=== PATIENT | female | born 1980 | race Two or more races ===

== ENCOUNTER 2018-01-30 19:16 | Emergency (ER) | payer MEDICAID ==
[2018-01-30] MEDS ORDERED: PREDNISONE 20 MG TABLET PO ONE (20:29)
--- NOTE | 2018-01-30 20:32 | ER Document Report ---
ED Respiratory Problem - General Chief Complaint: Productive Cough Stated Complaint: COUGH Time Seen by Provider: 01/30/18 20:18 Mode of Arrival: Ambulatory Information source: Patient Notes: 37-year-old female presented to ED for complaint of cough cold congestion and nonstop cough for the last week. She states she has a history of bronchitis and pneumonia but no asthma. She does have significant eczema to face both arms both legs. She has scratched several areas raw due to the itching. She states when she was in her early 20s she was told her she did not stop smoking she would be on oxygen but it for she was 32 so she stopped smoking at that time. She states that she and her family just moved from [place] and have not seen there new primary doctor yet but she does have her Medicaid card. Patient is alert and oriented respirations regular and unlabored when not coughing speaking in full sentences and walks with a even steady gait. TRAVEL OUTSIDE OF THE [place] IN LAST 30 DAYS: No - HPI Patient complains to provider of: Cough, Other - uri, eczema Onset: Last week Duration: Continuous Initiating Event: URI Quality of pain: Achy Severity: Moderate Pain Level: 3 Short of Breath: Mild Cough: Productive Sputum amount: Moderate Sputum color: Creamy Sputum consistency: Thick Associated symptoms: Congestion, Cough, PND, Runny nose, Sinus pain/pressure, Short of breath, Sore Throat. denies: Fever Similar symptoms previously: Yes Recently seen / treated by doctor: No - Related Data Allergies/Adverse Reactions: morphine Allergy (Verified 01/30/18 19:21) Past Medical History - General Information source: Patient - Social History Smoking Status: Former Smoker Cigarette use (# per day): No Chew tobacco use (# tins/day): No Smoking Education Provided: No Frequency of alcohol use: None Drug Abuse: None Lives with: Family Family History: Reviewed & Not Pertinent Patient has suicidal ideation: No Patient has homicidal ideation: No - Past Medical History Cardiac Medical History: Reports: None Pulmonary Medical History: Reports: Hx Bronchitis, Hx Pneumonia EENT Medical History: Reports: None Neurological Medical History: Reports: None Endocrine Medical History: Reports: None Renal/ Medical History: Reports: None Malignancy Medical History: Reports: None GI Medical History: Reports: None Musculoskeletal Medical History: Reports Hx Musculoskeletal Trauma Skin Medical History: Reports Hx Eczema Psychiatric Medical History: Reports: None Traumatic Medical History: Reports: Hx Fractures - Fractured wrist and ankle Infectious Medical History: Reports: None Past Surgical History: Reports: Hx Cholecystectomy - Immunizations Immunizations up to date: Yes Review of Systems - Review of Systems Constitutional: Recent illness EENT: Nose congestion, Nose discharge, Sinus pressure, Sinus discharge, Throat pain Cardiovascular: No symptoms reported Respiratory: Cough, Short of breath Gastrointestinal: No symptoms reported Genitourinary: No symptoms reported Female Genitourinary: No symptoms reported Musculoskeletal: No symptoms reported Skin: Other - Severe eczema to face neck arms Hematologic/Lymphatic: No symptoms reported Neurological/Psychological: No symptoms reported -: Yes All other systems reviewed and negative Physical Exam - Vital signs Vitals: Temp Pulse Resp BP Pulse Ox 98.5 F 77 18 147/79 H 96 01/30/18 19:31 01/30/18 19:31 01/30/18 19:31 01/30/18 19:31 01/30/18 19:31 Interpretation: Normal - General General appearance: Appears well, Alert - HEENT Head: Normocephalic, Atraumatic Eyes: Normal Pupils: PERRL Ears: Normal External canal: Normal Tympanic membrane: Normal Sinus: Normal Nasal: Purulent discharge, Swelling Mouth/Lips: Normal Mucous membranes: Normal Pharynx: Post nasal drainage Neck: Normal - Respiratory Respiratory status: No respiratory distress Chest status: Nontender Breath sounds: Normal Chest palpation: Normal - Cardiovascular Rhythm: Regular Heart sounds: Normal auscultation Murmur: No - Abdominal Inspection: Normal Distension: No distension Bowel sounds: Normal Tenderness: Nontender Organomegaly: No organomegaly - Back Back: Normal, Nontender - Extremities General upper extremity: Normal ROM, Normal temperature General lower extremity: Normal inspection, Nontender, Normal color, Normal ROM, Normal temperature, Normal weight bearing. No: Luis Antonio's sign Arm: Tender - Eczema bilateral arms elbows wrist and hands Elbow: Tender - Eczema bilateral arms elbows wrist and hands Forearm: Tender - Eczema bilateral arms elbows wrist and hands Wrist: Tender - Eczema bilateral arms elbows wrist and hands Hand: Tender - Eczema bilateral arms elbows wrist and hands - Neurological Neuro grossly intact: Yes Cognition: Normal Orientation: AAOx4 [place] Coma Scale Eye Opening: Spontaneous [place] Coma Scale Verbal: Oriented [place] Coma Scale Motor: Obeys Commands Tavia Coma Scale Total: 15 Speech: Normal Motor strength normal: LUE, RUE, LLE, RLE Sensory: Normal - Psychological Associated symptoms: Normal affect, Normal mood - Skin Skin Temperature: Warm Skin Moisture: Dry Skin Color: Normal Skin irregularity: Rash Location of irregularity: Other - Eczema face, neck, bilateral arms elbows wrist and hands Irregularity with: Scaling, Inflammation Course - Re-evaluation Re-evalutation: 01/30/18 20:43 Patient was treated with prednisone in the emergency room for her severe eczema that she has scratched raw. She also has a cold with clear lung sounds. She was not treated with antibiotics per her request because she has no need for antibiotics at this time the steroids are more for the eczema. Patient was instructed to follow-up with her primary care doctor promptly after the to get medicine for her eczema. - Vital Signs Vital signs: Temp Pulse Resp BP Pulse Ox 98.5 F 77 18 147/79 H 96 01/30/18 19:31 01/30/18 19:31 01/30/18 19:31 01/30/18 19:31 01/30/18 19:31 Discharge - Discharge Clinical Impression: URI (upper respiratory infection) Qualifiers: URI type: unspecified URI Qualified Code(s): J06.9 - Acute upper respiratory infection, unspecified Eczema Qualifiers: Eczema type: unspecified Qualified Code(s): L30.9 - Dermatitis, unspecified Condition: Stable Disposition: HOME, SELF-CARE Additional Instructions: UPPER RESPIRATORY ILLNESS: You have a viral infection of the respiratory passages -- a "cold." This common infection causes nasal congestion, drainage, and often sore throat and cough. It is highly contagious. The disease usually lasts about 10 to 14 days. There is no "cure" for the viral infection -- it must run its course. If there is a complication, such as bacterial infection in the nose, sinuses, middle ear, or bronchial tubes, antibiotics may be required. The antibiotics won't affect the virus. Drink plenty of fluids. A humidifier may help. An expectorant medication or decongestant may make you more comfortable. Use acetaminophen or ibuprofen for fever or aches. See the doctor if fever persists over two days, if there is any significant worsening of your symptoms, or if you simply fail to improve as expected. Atopic Dematitis (Eczema) You have atopic dermatitis, commonly called eczema. This is a chronic allergic skin condition. It often occurs in families with asthma and hay fever. The skin develops patches of redness, itching and scaling. Eczema often affects the back of the neck, back of the legs, and front of the arms. In children it affects the back of the knees, front of the elbows, and the cheeks. Itching is the main symptom. Eczema can be triggered by dryness, heat, sweating, and detergents or soap. Scratching makes the rash worse. Food or skin allergy can cause eczema. Emotional stress may also be a factor. Symptoms may get better or worse spontaneously. Generally, the treatment consists of: (1) avoid hot-water baths, (2) avoid using soap on your skin, (3) apply a cortisone cream as needed, and (4) use antihistamines for itching. For severe episodes, oral cortisone medication may be required. Call the doctor if you get worse despite treatment, or if signs of infection occur -- such as spreading redness, red streaks, swollen glands, swelling, or fever. DECONGESTANT MEDICATION: A decongestant medicine has been suggested. Often this medicine is combined in the same tablet with an antihistamine or expectorant. This type of medicine is helpful in treating a bad cold or sinus condition, as well as in treatment of the nasal congestion of hay fever. It is not of much benefit for lung infections. Decongestant medicines are related to stimulants. They can cause an increase in blood pressure and heart rate. Persons with heart disease and high blood pressure should not take decongestants without discussing this with the physician. If you develop palpitations, chest pain, headache, or tremors, stop the medicine and consult your physician. COUGH-SUPPRESSANT & EXPECTORANT MEDICATION: You are to use a cough medication as needed for relief of symptoms. This medicine is a combination of an expectorant (to make the mucous thinner and more easily "coughed up") and a cough suppressant (to reduce the frequency of coughing). The cough-suppressant medicine is related to narcotics. You may experience mild nausea and sleepiness. Some patients who are very sensitive to narcotics may have stomach pain from this medicine. Taking the medicine with food reduces these side effects. Do not drive or work with machinery until you know how this medicine affects you. The expectorant should have no side effects. Iodine-containing expectorants (such as organidin) should not be taken by persons with active thyroid disease unless approved by your doctor. Call the doctor if you develop shortness of breath, hives, rash, itching, lightheadedness, or severe nausea and vomiting. STEROID MEDICATION: You have been given an injection of or oral medicine of the cortisone/steroid class. This medication is used to control inflammation or allergy. Dale t is usually only given for a short period of time, until the acute process subsides. There are usually no side effects from short-term use of cortisone-like medications. Some persons feel an increased sense of well-being and are not sleepy at bedtime. Long-term use of cortisone medications is best avoided, unless required for a severe condition. If your condition does not remit, or relapses after the course of corticosteroid medication, you should consult your physician. USE OF ACETAMINOPHEN (Tylenol): Acetaminophen may be taken for pain relief or fever control. It's much safer than aspirin, offering a wider range of "safe" dosages. It is safe during . Some brand names are Tylenol, Panadol, Datril, Anacin 3, Tempra, and Liquiprin. Acetaminophen can be repeated every four hours. The following are maximum recommended dosages: >89 pounds or adults 650 mg to 900 mg Acetaminophen can be repeated every four hours. Maximum dose not to exceed 4000 mg a day. FOLLOW-UP CARE: If you have been referred to a physician for follow-up care, call the physician s office for an appointment as you were instructed or within the next two days. If you experience worsening or a significant change in your symptoms, notify the physician immediately or return to the Emergency Department at any time for re-evaluation. Prescriptions: Prednisone [Deltasone 20 mg Tablet] 3 tab PO DAILY 5 Days tablet Forms: Elevated Blood Pressure [facility] - Follow up as needed
[2018-01-30 20:56] VITALS: BP 141/77
== END 2018-01-30 20:57 | disposition home or self-care (01) ==
LOC: ER 19:16
DX: J06.9 Acute upper respiratory infection, unspecified (principal); L30.9 Dermatitis, unspecified; Z88.6 Allergy status to analgesic agent; Z90.49 Acquired absence of other specified parts of digestive tract
CPT/HCPCS: 99283; J7512

== ENCOUNTER 2018-03-19 13:59 | Emergency (ER) | payer MEDICAID ==
[2018-03-19 14:09] VITALS: BP 135/84
[2018-03-19] MEDS ORDERED: KETOROLAC TROMETHAMINE 60 MG/2 ML SDV IM ONE (14:18)
--- NOTE | 2018-03-19 14:22 | ER Document Report ---
HPI - HPI Time Seen by Provider: 03/19/18 14:12 Pain Level: 4 Notes: Patient is a 37-year-old female who presents to the ED complaining of nasal congestion/discharge, dry nonproductive cough, fever, s/t, mild LOJA, body ache 2 days. She has had 1-2 episodes of posttussive emesis. Patient states that she is still eating and drinking without difficulties, but does have a decreased p.o. intake. She is still urinating normally having normal bowel movements. Patient has been using some [id number] meds for symptoms. She denies any significant past medical history including cardiopulmonary history and immunocompromised conditions. Patient denies any smoking or IV drug use. Denies any neck pain, sore throat, chest pain, palpitations, syncope, shortness of breath, wheeze, dyspnea, abdominal pain, nausea/diarrhea, urinary retention, dysuria, hematuria, or rash. - ROS Systems Reviewed and Negative: Yes All other systems reviewed and negative - REPRODUCTIVE Reproductive: DENIES: : Past Medical History - Social History Smoking Status: Never Smoker Family History: Reviewed & Not Pertinent Pulmonary Medical History: Reports: Hx Bronchitis, Hx Pneumonia Renal/ Medical History: Denies: Hx Peritoneal Dialysis Musculoskeletal Medical History: Reports Hx Musculoskeletal Trauma Skin Medical History: Reports Hx Eczema Traumatic Medical History: Reports: Hx Fractures - Fractured wrist and ankle Past Surgical History: Reports: Hx Cholecystectomy - Immunizations Immunizations up to date: Yes Vertical Provider Document - CONSTITUTIONAL Agree With Documented VS: Yes Notes: PHYSICAL EXAMINATION: GENERAL: Well-appearing, well-nourished and in no acute distress. A&Ox4. Answers questions appropriately. Moves comfortably w/o notable distress HEAD: Atraumatic, normocephalic. EYES: Pupils equal round and reactive to light, extraocular movements intact, sclera anicteric, conjunctiva are normal. ENT: EAC clear b/l. TM's intact b/l without erythema, fluid, or perforation. Nares patent and with clear discharge. oropharynx mild erythema without exudates. No tonsilar hypertrophy without erythema or exudate. No palatine shift. Uvula midline. No tongue protrusion. No drooling, hoarseness, or airway compromise. Moist mucous membranes. No sinus tenderness. NECK: Normal range of motion, supple without lymphadenopathy. No rigidity/meningismus. LUNGS: Breath sounds clear to auscultation bilaterally and equal. No wheezes rales or rhonchi. No retractions HEART: Regular rate and rhythm without murmurs, rubs, gallops. ABDOMEN: Soft, nontender, nondistended abdomen. No guarding, no rebound. Normal bowel sounds present. No CVA tenderness bilaterally. NEUROLOGICAL: Normal speech, normal gait. PSYCH: Normal mood, normal affect. SKIN: Warm, Dry, normal turgor, no rashes or lesions noted. - INFECTION CONTROL TRAVEL OUTSIDE OF THE [place] IN LAST 30 DAYS: No Course - Re-evaluation Re-evalutation: 03/19/18 15:12 Patient is an afebrile, well-hydrated, 37-year-old female who presents to the ED with acute URI, suspect influenza. Vitals are acceptable. PE is otherwise unremarkable. Rapid strep neg. No other labs or imaging warranted at this time based on H&P. Toardol given IM. Patient has no significant cardiopulmonary or immunocompromised medical conditions. Patient's lungs are clear to auscultation bilaterally without tachycardia, hypoxia, or tachypnea. Patient is tolerating p.o. without any difficulties. Thoroughly reviewed the risks, benefits, pot ential side effects, estimated cost without insurance with patient. After thorough review, patient declined Tamiflu at this time. Low suspicion for any meningitis, sepsis, peritonsillar/pharyngeal abscess, respiratory compromise, severe dehydration, or other emergent systemic condition at this time. Patient is aware this condition can change from initial presentation and she needs to monitor symptoms closely. Conservative measures otherwise for symptoms. Recheck with your PCM in 3-5 days. Return to the ED with any worsening/concerning symptoms otherwise as reviewed in discharge. Patient is in agreement. - Vital Signs Vital signs: Temp Pulse Resp BP Pulse Ox 99.5 F 106 H 20 135/84 H 95 03/19/18 14:07 03/19/18 14:07 03/19/18 14:03/19/18 14:03/19/18 14:07 Discharge - Discharge Clinical Impression: Acute URI Condition: Stable Disposition: HOME, SELF-CARE Instructions: Upper Respiratory Illness ([facility]) Additional Instructions: Maintain adequate fluid intake Take meds as directed tylenol/ibuprofen as needed over the counter cold medication as needed for symptoms Humidified air may help Wash your hands regularly Wear a mask when coughing F/u: with your PCM in 3-5 days for a recheck Return to the ED with any fever, worsening pain, chest pain, palpitations, syncope, worsening LOJA, neck pain/stiffness, shortness of breath, wheezing, drooling, trouble swallowing/breathing, abdominal pain, n/v/d, rash, or worsening/concerning symptoms otherwise. Prescriptions: Ondansetron [Zofran Odt 4 mg Tablet] 1 - 2 tab PO Q4H PRN #15 tab.rapdis PRN Reason: For Nausea/Vomiting Forms: Elevated Blood Pressure Referrals: SAI KOHLER, [facility] [Primary Care Provider] - Follow up as needed
== END 2018-03-19 15:25 | disposition home or self-care (01) ==
LOC: ER 13:59
DX: J06.9 Acute upper respiratory infection, unspecified (principal); R09.81 Nasal congestion; R09.89 Other specified symptoms and signs involving the circulatory and respiratory systems; R05 Cough; R50.9 Fever, unspecified; R51 Headache; M79.10 Myalgia, unspecified site; R11.10 Vomiting, unspecified
CPT/HCPCS: 99283; 96372; 87070; 87880; J1885

== ENCOUNTER → 2018-03-31 | Outpatient (CLI) | payer MEDICAID ==
--- NOTE | 2018-03-31 16:35 | WOMENS IMAGING REPORT ---
EXAM DESCRIPTION: BILAT SCREENING MAMMO W/CAD COMPLETED DATE/TIME: 03/31/2018 8:51 am REASON FOR STUDY: Z12.31 SCREENING MAMMO Z12.31 ENCNTR SCREEN MAMMOGRAM FOR MALIGNANT NEOPLASM OF B RE COMPARISON: Baseline TECHNIQUE: Standard craniocaudal and mediolateral oblique views of each breast recorded using digita l acquisition. LIMITATIONS: None. FINDINGS: No masses, calcifications or architectural distortion. No areas of suspicion. Read with the assistance of CAD. .[facility] - R2 Cenova Version 1.3 .[facility] - R2 Cenova Version 1.[address] - R2 Cenova Version 2.4 .[facility] - R2 Cenova Version 2.4 .[facility] - R2 Director Of Sales Version 9.2 IMPRESSION: NORMAL MAMMOGRAM. BIRADS 1. BREAST DENSITY: c. The breasts are heterogeneously dense, which may obscure small masses. BIRAD: 1 NEGATIVE RECOMMENDATION: ROUTINE SCREENING Please continue yearly bilateral screening tomosynthesis in March 2019, given heterogeneously dens e bilateral breast tissue COMMENT: The patient has been notified of the results by letter per SA requirements. Additional no tification policies are in place for contacting patient with suspicious or incomplete findings. Quality ID #[id number]: The [employer] recommends an annual screening mammogram for women aged 40 years or over. This facility utilizes a reminder system to ensure that all patients receive reminder letters, and/or direct phone calls for appointments. This includes reminders for routine scr eening mammograms, diagnostic mammograms, or other Breast Imaging Interventions when appropriate. Th is patient will be placed in the appropriate reminder system. The [employer] ([employer]) has developed recommendations for screening MRI of the breast s in certain patient populations, to be used in conjunction with mammography. Breast MRI surveillanc e may be appropriate for women with more than 20% lifetime risk of developing breast cancer as deter mined by genetic testing, significant family history of the disease, or history of mantle radiation f or Hodgkins Disease. ACR Practice Guidelines 2008. TECHNICAL DOCUMENTATION: FINDING NUMBER: (1) ASSESSMENT: (1) JOB ID: [id number] [employer]- All Rights Reserved Reading location - IP/workstation name: [email or web address]
== END ==
LOC: WI 08:24
PROVIDERS: ATTEND Family Medicine
DX: Z12.31 Encounter for screening mammogram for malignant neoplasm of breast (principal)
CPT/HCPCS: 77067